=== PATIENT | male | born 1970 | race Caucasian/White ===

== ENCOUNTER 2019-11-21 11:56 | Day surgery (SDC) | payer BC, SELFPAY ==
[2019-11-20 12:00] VITALS: BMI 28.7
[2019-11-21] VITALS (7 sets, daily range): BP systolic 118–132; BP diastolic 73–94; PULSE 72–95; RESP 18; TEMP 36.6–37.2; O2SAT 95–100
--- NOTE | 2019-11-21 13:07 | FL_ITS ---
PROCEDURE: FL ERCP CLINICAL INDICATION: jaundice Obstructive common bile duct COMPARISON: No exams were available for comparison FINDINGS: Fluoroscopy time: 5 minutes and 12 seconds There are no previous exams available for comparison. Initially the pancreatic duct was cannulated and was not distended without obvious filling defects. There was poor opacification of the common bile duct on the images submitted. There is suggestion of a stricture and involving the distal aspect of the common bile duct not well demonstrated. A stent was placed during the procedure. IMPRESSION: Suspected stricture of the distal aspect of the common bile duct. MRCP may confirm Dictated by: Bruce Greco MD 11/21/2019 20:34 Electronically signed by Bruce Greco MD in [place] 11/21/2019 20:34
--- NOTE | 2019-11-21 13:48 | HMH.PROC ---
[facility] Procedure Note Procedure Note:: ERCP procedure Report: Endoscopic retrograde cholangiopancreatography with biliary sphincterotomy, cold biopsies, brushings and stent placement Endoscopist: Vadim Laguna II, MD Referring Physician: Abraham Badillo MD Date of Procedure: November 21, 2019 Equipment: Olympus 180 side viewing endoscope duodenoscope Sedation: MAC sedation Indication: Mr. Sabillon is a 49-year-old gentleman who initially developed pruritus which was diffuse. The patient states that this pruritus initially began approximately 1 month ago. 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 He has had some mild epigastric and periumbilical abdominal discomfort that does not radiate into the back. He has some chronic GERD which is controlled with famotidine. Omeprazole treatment resulted in cardiac arrhythmia. The patient did develop influenza A a couple of months ago and lost some weight at that time. He has additionally lost more weight (between 15 and 20 pounds) unintentionally. The patient did go to see Dr. Jd Badillo and had diagnostic labs and CAT scan. The CAT scan did show bile duct dilation with the CBD measuring approximately 15 mm. There was gallbladder distention. There was no evidence of any pancreatic mass or description of pancreatic ductal dilation. The patient's lab work revealed alkaline phosphatase of 400, ALT 567 and total bilirubin 8.0. ERCP was recommended. Procedure: Prior to the procedure, a history and physical exam was performed, and patient's medications and allergies were reviewed. The risks, benefits and alternatives of the sedation and procedure were discussed with the patient. All questions were answered and informed consent was obtained. The patient was brought to the fluoroscopic radiology room. Patient identification and proposed procedure were verified by the physician and the nurse. The patient was placed in a swimmer's position between left lateral decubitus and prone position and the scope was passed under direct vision. Throughout the procedure, the patient's blood pressure, pulse, and oxygen saturations were monitored continuously. The ERCP was accomplished without difficulty. The patient tolerated the procedure well. Findings: The side-viewing duodenoscope was passed directly into the upper esophagus and advanced to the second portion of the duodenum. The esophagus, stomach and duodenum were grossly normal. There may have been very small/faint esophageal varices. The ampulla was very prominent in appearance but there was no mucosal abnormalities at the ampullary orifice. Both the common bile duct and pancreatic duct were cannulated. The pancreatogram showed a normal 2 mm pancreatic duct in the head and neck with filling of the accessory duct. Filling of the neck and body of the pancreas also appeared to have a normal pancreatic duct with no stricturing. The common bile duct was cannulated and there was a 1.5 cm stricture in the distal common bile duct with proximal biliary dilation of the common bile duct, common hepatic duct and intrahepatic biliary system. There was no filling defect/biliary stones. Partial filling of the gallbladder showed no filling defects. Next, a biliary sphincterotomy was performed generously. After the sphincterotomy, cold biopsy forceps were introduced into the common bile duct gently and cold biopsies were taken at the site of the biliary stricture. 2 sets of biopsies were performed of the CBD stricture. Next, brushings of the stricture were obtained using wire-guided brush. Lastly, a 10 Pan[place]ian/7 cm straight Wayne stent was deployed across the distal CBD stricture with excellent decompression of the biliary system and flow of bile. Impression: 1. Distal common bile duct stricture without evidence of pancreatic obstruction or ampullary mass?rule out benign versus malignant (i.e. distal cholangiocarcinoma) distal CB
--- NOTE | 2019-11-21 13:56 | P.PN_ITS ---
[facility] Anesthesia Checklist - Patient Identification Patient Identification: Arm Band, Verbal (Name & ) - Structural Data Admitted From: Home Planned Operative Procedure/s: ercp Consent for Planned Operative Procedure(s) Verified: Yes Verified Documents: History and Physical - NPO Status Verified Time NPO: 00:00 - Additional verifications Patient : No Anesthesia Reactions: No Hx Blood Transfusions: No Blood Transfusion Reaction: No Cephalosporin Allergy: No Previous Colonoscopy: No - Cardiovascular Assessment Heart Sounds: S1 & S2 Pulse Strength: Baseline Pulse Rhythm: Regular Peripheral Edema: Yes - Airway Assessment C-Spine Mobility Assessed: No TMJ Mobility Assessed: No Dentition: Good Dentition - Neurological Assessment Level of Consciousness: Awake, Alert, Appropriate Hx Seizures: No Numbness or tingling in extremities: No - Anesthesia Plan Anesthesia Risk discussed: Yes Anesthesia Plan: Verified ASA Class: II Anesthesia Type: MAC [facility] History I have reviewed the patient's past medical history: Yes Medical History: Denies:: Cancer, Diabetes Mellitus Type 1, Diabetes Mellitus Type 2, Internal Pacemaker, MRSA, Seizures *Have you ever received a pneumonia vaccine?: No *Have you received a flu vaccine this season?: No Anesthesia experience/problems:: none Laterality Cases: Bilateral: Tonsillectomy Other Surgeries: No: Pacemaker Amputation: No Fractures: Yes (right elbow, distal fibula,left wrist) - *Social History Alcohol Intake: never Substance Use Type: other *Occupational Status:: employed Housing: house Household Members: spouse *Travel in the last 8 weeks: None Family Hx:: Cancer, Hyperlipidemia, Other
--- NOTE | 2019-11-21 14:48 | PC.NURSE ---
1423 Lab in to draw labs
[2019-11-23 13:03] LABS: CA 19-9 52 U/mL (0-35); CEA 1.4 ng/mL (0.0-4.7)
== END 2019-11-21 14:49 | disposition home or self-care (01) ==
LOC: OUTP 12:01
PROVIDERS: PCP Internal Medicine; Visit Provider Internal Medicine Gastroenterology
PROC: (CPT 43262; principal; 2019-11-21 13:00)
DX: K83.1 Obstruction of bile duct (principal); Z85.46 Personal history of malignant neoplasm of prostate; I10 Essential (primary) hypertension; K21.9 Gastro-esophageal reflux disease without esophagitis; Z90.49 Acquired absence of other specified parts of digestive tract; Z79.899 Other long term (current) drug therapy
CPT/HCPCS: 43262; 43261; 43274; 36415; 74330; 82378; 86316; C2617